=== PATIENT | female | born 1995 | race African-American/Black ===

== ENCOUNTER 2016-08-13 22:22 | Emergency (ER) | payer OTHER ==
[2016-08-13 22:31] VITALS: BP 134/76; PULSE 82; TEMP 97.8; BMI 48.4
--- NOTE | 2016-08-13 22:52 | PDOC ---
History of Present Illness - General History Source: Patient Exam Limitations: No Limitations - History of Present Illness Initial Comments: 08/13/16 23:59 The patient is a 20 year old female presenting with her friend, with a significant past medical history of asthma, who presents to the emergency department with dysuria, hematuria and abdominal pain for the past day. She describes her abdominal pain as a cramping sensation, that ranges from mild to moderate, without radiation or modifying factors. She also reports mild back pain, localized in the lower back, without radiation or modifying factors. The patient denies chest pain, shortness of breath, headache and dizziness. Denies fever, chills, nausea, vomit, diarrhea and constipation. Denies frequency and urgency. Allergies: Penicillin Past surgical history: None reported Social history: No alcohol, tobacco or drug use reported <Yordy Hernandez - Last Filed: 08/13/16 23:59> <Pamela Phoenix - Last Filed: 08/14/16 00:11> - General Chief Complaint: Hematuria Stated Complaint: HEMATURIA Time Seen by Provider: 08/13/16 22:52 Past History <Yordy Hernandez - Last Filed: 08/13/16 23:59> - Past Medical History Other medical history: denies - Psycho/Social/Smoking Cessation Hx Suicidal Ideation: No Smoking History: Unknown if ever smoked Hx Alcohol Use: No Drug/Substance Use Hx: No <Pamela Phoenix - Last Filed: 08/14/16 00:11> - Past Medical History Allergies/Adverse Reactions: Allergies Allergy/AdvReac Type Severity Reaction Status Date / Time Penicillins Allergy Verified 08/13/16 22:28 Home Medications: Ambulatory Orders Phenazopyridine HCl [Pyridium -] 100 mg PO BID #6 tablet 08/14/16 Sulfamethoxazole/Trimethoprim [Bactrim Ds -] 1 tab PO BID #14 tablet 08/14/16 Review of Systems - Review of Systems Able to Perform ROS?: Yes Comments:: 08/14/16 00:00 GENERAL/CONSTITUTIONAL: No fever or chills. No weakness. HEAD, EYES, EARS, NOSE AND THROAT: No change in vision. No ear pain or discharge. No sore throat. CARDIOVASCULAR: No chest pain or shortness of breath RESPIRATORY: No cough, wheezing, or hemoptysis. GASTROINTESTINAL: +Abdominal pain. No nausea, vomiting, diarrhea or constipation. GENITOURINARY: +Dysuria and hematuria. No frequency MUSCULOSKELETAL: No joint or muscle swelling or pain. No neck or back pain. SKIN: No rash NEUROLOGIC: No headache, vertigo, loss of consciousness, or change in strength/ sensation. ENDOCRINE: No increased thirst. No abnormal weight change HEMATOLOGIC/LYMPHATIC: No anemia, easy bleeding, or history of blood clots. ALLERGIC/IMMUNOLOGIC: No hives or skin allergy. <Yordy Hernandez - Last Filed: 08/13/16 23:59> *Physical Exam - Vital Signs Last Vital Signs Temp Pulse Resp BP Pulse Ox 97.8 F 82 18 134/76 99 08/13/16 22:28 08/13/16 22:28 08/13/16 22:28 08/13/16 22:28 08/13/16 22:28 - Physical Exam Comments: 08/14/16 00:00 GENERAL: +Obese. Awake, alert, and fully oriented, in no acute distress HEAD: No signs of trauma, normocephalic, atraumatic EYES: PERRLA, EOMI, sclera anicteric, conjunctiva clear ENT: Auricles normal inspection, hearing grossly normal, nares patent, oropharynx clear without exudates. Moist mucosa NECK: Normal ROM, supple, no lymphadenopathy, JVD, or masses LUNGS: No distress, speaks full sentences, clear to auscultation bilaterally HEART: Regular rate and rhythm, normal S1 and S2, no murmurs, rubs or gallops, peripheral pulses normal and equal bilaterally. ABDOMEN: Soft, nontender, normoactive bowel sounds. No guarding, no rebound. No masses EXTREMITIES: Normal inspection, Normal range of motion, no edema. No clubbing or cyanosis. NEUROLOGICAL: Cranial nerves II through XII grossly intact. Normal speech, normal gait, no focal sensorimotor deficits SKIN: Warm, Dry, normal turgor, no rashes or lesions noted. <Yordy Hernandez - Last Filed: 08/13/16 23:59> - Vital Signs Last Vital Signs Temp Pulse Resp BP Pulse Ox 97.8 F 82 18 134/76 99 08/13/16 22:28 08/13/16 22:28 08/13/16 22:28 08/13/16 22:28 08/13/16 22:28 <Pamela Phoenix - Last Filed: 08/14/16 00:11> ED Treatment Course - ADDITIONAL ORDERS Additional order review: Laboratory Results 08/13/16 08/13/16 23:15 23:15 Urine Color Yellow Urine Appearance Cloudy Urine pH 5.0 Ur Specific [place] 1.024 Urine Protein 1+ H Urine Glucose (UA) Negative Urine Ketones Negative Urine Blood 2+ H Urine Nitrite Negative Urine Bilirubin Negative Urine Urobilinogen Negative Ur Leukocyte Esterase 3+ H Urine RBC 28 Urine WBC 130 Ur Epithelial Cells Many Urine Bacteria Few Urine Mucus Rare Urine HCG, Qual Negative <Yordy Hernandez - Last Filed: 08/13/16 23:59> *DC/Admit/Observation/Transfer - Attestations Scribe Attestion: 08/14/16 00:00 Documentation prepared by Yordy Hernandez, acting as medical office representative for Pamela Phoenix MD <Yordy Hernandez - Last Filed: 08/13/16 23:59> <Pamela Phoenix - Last Filed: 08/14/16 00:11> Diagnosis at time of Disposition: Hematuria - Discharge Dispostion Disposition: HOME Condition at time of disposition: Stable - Prescriptions Prescriptions: Sulfamethoxazole/Trimethoprim [Bactrim Ds -] 1 tab PO BID #14 tablet Phenazopyridine HCl [Pyridium -] 100 mg PO BID #6 tablet - Patient Instructions Printed Discharge Instructions: DI for Hemorrhagic Cystitis Additional Instructions: -please garbage pick up man your medication at [facility] -return if you develop any worsening symptoms
[2016-08-13 23:36] LABS: URINE APPEARANCE CLOUDY; URINE BILIRUBIN NEGATIVE (NEGATIVE); URINE COLOR YELLOW; URINE GLUCOSE (UA) NEGATIVE (NEGATIVE); URINE KETONE NEGATIVE (NEGATIVE); URINE NITRITE NEGATIVE (NEGATIVE); URINE UROBILINOGEN NEGATIVE E.U./dl (0.2-1.0)
[2016-08-13 23:48] LABS: URINE BLOOD 2+ (NEGATIVE); URINE LEUK ESTERASE 3+ (NEGATIVE); URINE PROTEIN 1+ (NEGATIVE)
[2016-08-13 23:51] LABS: URINE BACTERIA FEW /hpf (NONE SEEN); URINE MUCUS RARE; URINE RBC 28 /hpf (0-3); URINE WBC 130 /hpf (3-5)
[2016-08-14] MEDS ORDERED: SULFAMETHOXAZOLE/TRIMETHOPRIM 800MG/160MG D.S. TABLET PO ONE (00:02)
[2016-08-14] MEDS ORDERED: PHENAZOPYRIDINE HCL 100 MG TABLET (FP) PO ONE (00:03)
[2016-08-14] MEDS ORDERED: SULFAMETHOXAZOLE/TRIMETHOPRIM 800MG/160MG D.S. TABLET ONE (00:07)
[2016-08-14] MEDS ORDERED: PHENAZOPYRIDINE HCL 100 MG TABLET (FP) ONE (00:07)
== END 2016-08-14 00:11 | disposition home or self-care (01) ==
LOC: JER 22:22
DX: N30.01 Acute cystitis with hematuria (principal)
CPT/HCPCS: 81003; 81015; 84703; 99282-25